=== PATIENT | female | born 1955 | race Two or more races ===

== ENCOUNTER 2021-09-13 13:32 | Outpatient (CLI) | payer MEDICARE, OTHER ==
[2021-09-20] MEDS ORDERED: ASPI-869 PO (12:21)
[2021-09-20] MEDS ORDERED: HYDR-3972 PO (12:21)
[2021-09-20] MEDS ORDERED: RIVA10TA PO (12:21)
== END 2021-09-13 23:59 | disposition home or self-care (01) ==
LOC: LAB 13:32
PROVIDERS: ATTEND Specialist
DX: Z01.812 Encounter for preprocedural laboratory examination (principal); Z20.822 Contact with and (suspected) exposure to COVID-19
CPT/HCPCS: C9803; U0003

== ENCOUNTER 2021-09-19 05:19 | Inpatient (IN) | payer MEDICARE, OTHER ==
[~2021-09-19] VITALS: Ht 152.4 cm; Wt 68.5 kg
[2021-09-19 05:45] VITALS: BP 139/73
[2021-09-19] MEDS ORDERED: CEFAZOLIN 2 GM in IV D5W 100 ML IV ONE (06:00)
[2021-09-19] MEDS ORDERED: POLYMYXIN B SULFATE 500,000 UNITS ONE (06:04)
[2021-09-19] MEDS ORDERED: BUPIVACAINE 0.5 % PF 150 MG/30 ML VIAL ONE ×2 (06:05→06:19)
--- NOTE | 2021-09-19 06:06 | NUR ---
DAY SURGERY 66 y/o Female arrived to unit for day surgery. Patient is A/O x4, ambulatory, independent. Patient consented procedure. Procedure checklist competed and signed. Patient transported to OR by bed. Will endorse to oncoming RN. To be admitted to unit post op.
[2021-09-19] MEDS ORDERED: FENTANYL PF 100MCG/2ML AMPUL ONE (06:18)
[2021-09-19] MEDS ORDERED: HYDROMORPHONE INJ 2 MG/ML DISP.SYRIN ONE (06:18)
[2021-09-19] MEDS ORDERED: ROCURONIUM BROMIDE 50 MG/5 ML ONE (06:18)
[2021-09-19] MEDS ORDERED: MIDAZOLAM HCL 2 MG/2ML VIAL ONE (06:18)
[2021-09-19] MEDS ORDERED: TRANEXAMIC ACID 3,000 MG in SODIUM CHLORIDE IRRIG SOLUTION 70 ML IR ONE (07:00)
--- NOTE | 2021-09-19 08:00 | NUR ---
DAY SURGERY PATIENT IS NOT IN THE UNIT AT THIS TIME. IN THE OR FOR SURGERY WITH DR. HICKS.
[2021-09-19] MEDS ORDERED: HYDROMORPHONE 1 MG/1 ML DISP.SYRIN ONE ×2 (08:40→08:54)
[2021-09-19] MEDS ORDERED: ACETAMINOPHEN 325 MG TABLET PO PRN (09:00)
[2021-09-19] MEDS ORDERED: BISACODYL SUPP (10 MG) 10 MG/SUPP.RECT SUPP.RECT RC PRN (09:00)
[2021-09-19] MEDS ORDERED: SENNOSIDES 8.6 MG TABLET PO PRN (09:00)
[2021-09-19] MEDS ORDERED: HYDROCODONE/APAP 5/325MG TABLET PO PRN ×2 (09:00→11:00)
[2021-09-19] MEDS ORDERED: DOCUSATE SODIUM 250 MG CAPSULE PO PRN (09:00)
[2021-09-19] MEDS ORDERED: ZOLPIDEM TARTRATE 5 MG TABLET PO PRN (09:00)
[2021-09-19] MEDS ORDERED: ONDANSETRON HCL/PF 4 MG/2 ML VIAL IVP PRN (09:00)
--- NOTE | 2021-09-19 09:48 | NUR ---
MS/RN RECEIVING NOTES RECEIVED A PATIENT VIA GURNEY, A TRANSFER FROM OR. S/P RIGHT TOTAL KNEE ARTHROPLASTY WITH DR. HICKS. PATIENT IS ALERT AND ORIENTED X4, ABLE TO MAKE NEEDS KNOWN. IN ROOM AIR WITH NO S/S OF DISTRESS NOTED. V/S TAKEN AND RECORDED FOLLOWS: BP- 119/59, P-73, RR-18, T-98.5, O2 SAT AT 99% ON ROOM AIR. IV ACCESS ON LEFT HAND #20G IS INTACT AND PATENT. MINIMAL PAIN REPORTED BUT TOLERABLE. SEEN BY DR. RENDON AT BEDSIDE. ORIENTED PATIENT ON THE UNIT. HEALTH TEACHINGS GIVEN AND ABLE TO VERBALIZED UNDERSTANDING. SAFETY PRECAUTIONS OBSERVED: BED LOCKED ON LOWEST POSITION, SIDE RAILS UP X2, CALL LIGHT WITHIN EASY REACH. WILL CONTINUE TO MONITOR PATIENT.
[2021-09-19] MEDS: IV D5/0.45 NACL 1,000 ML IV PRN ×2 (10:50→18:35)
[2021-09-19 11:00] VITALS: BP 108/54
[2021-09-19] MEDS ORDERED: oxyCODONE IR immediate release 5 MG PO PRN (11:00)
[2021-09-19] MEDS ORDERED: NALOXONE HCL 0.4 MG/ML AMPUL IV PRN (11:00)
[2021-09-19] MEDS ORDERED: MAG HYDROX/AL HYDROX/SIMETH 30 ML UDC PO PRN (11:00)
[2021-09-19] MEDS ORDERED: CLONIDINE HCL 0.1 MG TABLET PO PRN (11:00)
[2021-09-19] MEDS ORDERED: MAGNESIUM HYDROXIDE 30 ML UDC PO PRN (11:00)
[2021-09-19] MEDS ORDERED: diphenhydrAMINE HCL 25 MG CAPSULE PO PRN (11:00)
[2021-09-19] MEDS ORDERED: MENTHOL/CETYLPYRD (CEPACOL) 1 LOZ LOZENGE MM PRN (11:00)
[2021-09-19] MEDS ORDERED: HYDROMORPHONE 1 MG/1 ML DISP.SYRIN IV PRN (11:30)
[2021-09-19] MEDS: HYDROMORPHONE 1 MG/1 ML DISP.SYRIN IV PRN ×2 (11:34→17:53)
[2021-09-19] MEDS: ANCEF 1 GM/50 ML D5W IV SCH ×2 (14:30→23:10)
[2021-09-19] MEDS ORDERED: INFLUENZA VACCINE 2021-22 0.5 ML DISP.SYRIN IM ONE (15:00)
--- NOTE | 2021-09-19 15:47 | NUR ---
FLU VACCINE ADMINISTERED ADMINISTERED FLU VACCINE IM PER PATIENT REQUEST ON LEFT DELTOID AREA. WILL MONITOR.
[2021-09-19 16:00] VITALS: BP 112/67
[2021-09-19] MEDS: DOCUSATE SODIUM 100 MG CAPSULE PO SCH (17:46)
[2021-09-19] MEDS: RIVAROXABAN 10 MG TABLET PO SCH (17:47)
--- NOTE | 2021-09-19 18:54 | NUR ---
MS/RN CLOSING NOTES PATIENT IS IN BED WATCHING TV, ALERT AND ORIENTED X4, ABLE TO MAKE NEEDS KNOWN. STABLE ON ROOM AIR. NO DISTRESS NOTED AT THIS TIME. S/P RIGHT TOTAL KNEE ARTHROPLASTY WITH DR. HICKS. DRESSING INTACT. IV ACCESS ON LEFT HAND #20G IS INTACT WITH A RUNNING D5 1/2 NS @ 125ML/HR. ALL NEEDS MET. KEPT PATIENT COMFORTABLE ALL THROUGHOUT THE SHIFT. SAFETY MEASURES IN PLACED: BED LOCKED ON LOWEST POSITION, SIDE RAILS UPX2, CALL LIGHT WITHIN EASY REACH. WILL ENDORSE TO THE NEXT SHIFT FOR DILIP.
--- NOTE | 2021-09-19 19:30 | NUR ---
MS RN NOTES RECEIVED ON LAYING COMFORTABLY ON BED,A.O X4,SPEAK FILIPINO,BREATHING EASY,NO SOB,IVF INFUSING WELL ON LEFT HAND AT 125ML/HR RATE VIA IV PUMP.S/P RIGHT TOTAL KNEE ARTHROPLASTY,DRESSING INTACT AND DRY.CONTINENT,USE BEDPAN.PAIN TOLERABLE AT THE MOMENT,CALL LIGHT IN REACH,NEEDS ANTICIPATED.
[2021-09-19 20:00] VITALS: BP 101/58
[2021-09-19] MEDS: FAMOTIDINE (20 MG) 20 MG TABLET PO SCH (20:59)
[2021-09-19] MEDS: oxyCODONE IR immediate release 5 MG PO PRN (21:03)
--- NOTE | 2021-09-19 21:03 | NUR ---
MS RN NOTES PAIN MANAGEMENT C/O RIGHT KNEE PAIN 7/10 ON PAIN SCALE,OXY/IR 10MG PO GIVEN ORDERED FOR MODERATE PAIN
[2021-09-20] MEDS: IV D5/0.45 NACL 1,000 ML IV PRN (03:52)
[2021-09-20] MEDS: HYDROMORPHONE 1 MG/1 ML DISP.SYRIN IV PRN ×2 (03:59→14:25)
--- NOTE | 2021-09-20 03:59 | NUR ---
MS RN NOTES PAIN MANAGEMENT C/O PAIN 8/10 ON PAIN SCALE,MEDICATED WITH DILAUDID 0.5MG IV ORDERED.
--- NOTE | 2021-09-20 06:39 | NUR ---
MS RN NOTES FAIRLY RESTED AT NIGHT,IVF IN PROGRESS,PAIN MANAGEMENT EFFECTIVE,IN NO ACUTE DISTRESS.WILL ENDORSE TO DAY NURSE FOR DILIP
--- NOTE | 2021-09-20 07:37 | NUR ---
RN OPENING NOTES Patient seen comfortably lying in bed, no SOB, no apparent distress noted, breathing even and unlabored, denies any pain or discomfort at this time, no grimacing. Call light left within reach, safety precautions in place, brakes locked, side rails up X 2, will monitor closely for any changes.
[2021-09-20 08:00] VITALS: BP 98/51
[2021-09-20] MEDS: DOCUSATE SODIUM 100 MG CAPSULE PO SCH ×2 (08:07→16:32)
[2021-09-20] MEDS: FAMOTIDINE (20 MG) 20 MG TABLET PO SCH (08:07)
[2021-09-20] MEDS: oxyCODONE IR immediate release 5 MG PO PRN (08:59)
--- NOTE | 2021-09-20 11:09 | NUR ---
SS Consult: SS consult for discharge planning. Pt. Is a 66-year-old female. Pt. demonstrates adequate insight to the reason for hospitalization. Per pt., she was brought in by family for knee surgery. Pt. was oriented x4, alert, and cooperative. During interview, pt. was capable of following directions, made appropriate eye-contact, and appeared well-groomed. Pt.s speech was at a normal rate. Pt.s mood was elevated. SW explored pt.s Hx of mental health and substance abuse. Pt. reported no Hx of mental health, substance abuse, suicidal or homicidal. Pt. denies auditory hallucinations, visual hallucinations, paranoia, or delusions. SW explored pt.s living situation. Per pt., she lives with family [[address] [place] [address]]. Per pt., she reports having adequate support from family [daughter in law and son]. Pt. reported that she has a supportive family and feels safe at home. Pt. mentioned that she can care for herself. Pt. is independent with her ADLs and uses a walker. Plan: SW provided available senior resources and pt. accepted. Once discharge, per pt., she would like to return to home [[address] [place] [address]]. Resources Provided: ABUSE PREVENTION: ELDER ABUSE HOTLINE (27/04) ADULT PROTECTIVE SERVICES HOTLINE LONG-TERM CARE [facility] Region AREA ON AGING (HOTLINE) ADULT DAY HEALTH CARE CARE CENTERS: Private pay or Medi-shara funded adult day care [facility] , [facility] Services , [facility] , [facility] Adult Day Health Care , [facility] Adult [facility] Health Care , [facility] Adult Daycare Center , [facility] , [facility] , Vian ALZHEIMERS DISEASE/DEMENTIA: Alzheimers Association Helpline [facility] www.alz.org/[facility] Department of Aging www.lacity.org Family Caregiver Corinne www.caregiver.org [place] Caregiver Resources Center/Family Support www.[facility].org CANCER RESOURCES: [place] Cancer Society www.cancer.org Cancer Support Community www.CancerSupportVvsb.org: CancerCare www.cancercare.org [facility] Cancer Support [place] www.Underground Cellar.org [facility] HEALTH ASSOCIATIONS: AARP www.aarp.org ALS Association (ask for Leslee) www.als.org [place] Diabetes Association www.diabetes.org [place] Heart Association www.heart.org [place] Lung Association www.lungusa.org [place] Parkinson Disease Association www.apdaparkinson.org [place] , www.redcross.org Arthritis Foundation www.arthritis.org Crohns & Colitis Foundation of [place] www.ccfa.org/chapters/chacorta National Multiple Sclerosis Society www.nationalmssociety.org Myasthenia Gravis Foundation www.myasthenia-ca.org National Stroke Association www.stroke.org CONSERVATORSHIP & GUARDIANSHIP: AARP Ebony [place] Legal Services Center for Health Care Rights Eldercare Information and Referral Fuel Cell Builder [facility]: [facility] Bar Referral Service [facility] Neighborhood Legal Services Office of the Public Guardian [place] EYESIGHT DISORDER RESOURCES: [place] Macular Degeneration Foundation [facility] www.[facility].org GRIEF AND BEREAVEMENT RESOURCES: The [place] , [facility] THE HOPE Connection , [facility] Bereavement Center , [place] HEARING DISORDER RESOURCES: [place] Telephone Access Program Deaf and Disabled Telecommunications Program www.ddtp.[facility].ca.gov HearRx Hearing Centers ([place]) Better Hearing Systems , [place] GLAD ([facility] Agency on Deafness) V/ TTY; Locator Specialist , [facility] Hearing [facility] -low income hearing aid assistance www.[facility] semin[facility] hospitalfoundation.org [place] [facility] , Devika HELP AT HOME CAREGIVER SUPPORT: In Home Support Services (Must have [facility] to be eligible) *Ask for a list of agencies that provide services to assist with care in the home. Local Senior Centers also have listings of care providers. HOME SAFETY MODIFICATIONS AND EQUIPMENT: Senior centers have additional referrals. [place] Housing and Community Investment Dept. Handyworker Program (low income) or Visit http://hcidla.[facility].org/jzr-bafnwb-ad for more information National Seating and Mobility and/or ; Forever Active www.foreGigaFin Networks Stay Home Safe www.Stayhomesafe.com LIFE ALERT RESPONSE SYSTEM: [employer] Services 371-343-7426 www. Waffle Life Alert 562-723-3987 www.Statwing.[employer]ama [employer] Life Station 898-627-3738 www.Reddit.[employer] Safe Return 386-361-2218 www.HEALBE.or/safereturn Cell Phones for Seniors www.Edtrips MEALS AND FOOD PROGRAMS: [place] Meals on Wheels [phone] [place] Meals on Wheels [phone] [facility] [phone] [place] to the Homebound [phone] [place] to the Homebound [phone] [facility] to the Homebound [phone] [facility] to the Homebound [phone] [facility] [phone] [facility] [phone] ONE Generation [phone] [facility] [phone] [facility] [phone] Meals on Wheels [phone] For all ages: $6.85/ meal w side. Delivered M-F from 10 am-1pm. Application and payment is done over the phone. Frozen meals available for weekends. [place] [facility] Food [facility] [phone] [facility] Torch Shearer [phone] [facility] [phone] [facility] [place]- Brown bag lunches [phone] [facility] [phone] MEAL/GROCERY DELIVERY PROGRAMS: [facility] Gourmet Meals [phone]- [facility] [phone]- [facility] Magic Kitchen [phone] Moms Meals [phone] (ask Sharif for Discount Select grocery stores may provide delivery. MEDICAL INSURANCE SUPPORT SERVICES: Center for Health Care Rights [phone] Health Insurance Counseling/Advocacy Programs (HICAP)-Must have Medicare. Offers counseling for Medi-Shara eligibility [phone] Department of Public Torch Shearer 551-808-4576 www.[facility].ca.gov Medicare [phone] www.socialsecurity.org Social Security [phone] SENIOR ACTIVITY PROGRAMS: *Contact a local senior center, adult school, recreation facility or community college for education, fitness, recreation, and social programs. Aquatic Therapy and Adapted Exercise programs through [facility] [phone] Encore at [facility] [phone] www.[facility] gardens/encore H2U- Senior Friends [phone] [place] Senior Programs [phone] www.oasisnet.org Suddenly 65 www.sttwhysl04.Grama V[employer]yal [employer] Finance SENIOR CENTERS: [facility] [phone] [facility] [phone] [facility] [phone] [facility] Innovation Center [phone] [facility] [phone] [facility] [phone] [facility] [phone] [facility] [phone] One GenerationDorindaSt. [facility] [phone] [facility] [phone] [facility] [phone] [facility] [phone] [facility] [phone] TRANSPORTATION: Local [facility] may have applications for transportation programs and additional resources. ACCESS Services [phone] Transportation for seniors and disabled persons 7 days a week requiring 254 hr. advance reservation. Must apply and register for program nicola eligible. [employer] [phone] or [phone] Transportation for seniors and persons with ADA card/metro disabled card in the [facility]. M-F only. Must register for services. ONE GENERATION [phone] Serves 65 years + in conjunction with city ride program. Must be registered with both programs. A to B Transport [phone] Provides wheelchair/gurney van service. Adult Medical Transport [phone] Accepts [facility] with prior authorization. Care Van [phone] Provides wheelchair Transport. [facility] Wide Transportation [phone] Provides gurney service Gentle Care [phone] Gurney Transport. [facility] Town Transportation [phone] wheelchair & gurney transport D Transportation [phone] wheelchair & gurney transport [place] Non-Emergency Transport [phone] wheelchair & gurney transport [facility] Center [phone] Short Term Transportation primarily for adults with disabilities on social security income. Nominal fee may apply and a reservation is required. [facility] [phone] or [phone] [facility] [phone] [place] [address] Services -[phone] For additional programs & services VETERANS RESOURCES: Submissions for Aid and Attendance should be done directly to Federal VA office locatd at : [facility] [address] [facility]. [facility] [phone] National Caregiver Support Line [phone] [facility] Veterans Services Field Office [phone] [place] Department of [place] Affairs [phone] Pension Information [phone]
[2021-09-20] MEDS ORDERED: ASPI-869 PO (12:21)
[2021-09-20] MEDS ORDERED: RIVA10TA PO (12:21)
[2021-09-20] MEDS ORDERED: HYDR-3972 PO (12:21)
[2021-09-20 16:00] VITALS: BP 102/51
[2021-09-20] MEDS: RIVAROXABAN 10 MG TABLET PO SCH (16:32)
--- NOTE | 2021-09-20 16:40 | NUR ---
Patient to be discharged home today, no apparent distress noted, no shortness of breath, respirations even and unlabored, pain medication given per MD order as needed when non pharmacological measures ineffective. Patient made aware of the situation, she signed all discharge paper works, all belongings taken, inventory list signed by patient. Health teaching provided, verbalized understanding and gratitude. Reminded resident to pecan picker new prescriptions at [facility] pharmacy. Skin assessment done prior to discharge, skin intact, warm to touch, no pallor or cyanosis noted. Patient has right knee surgical site, dressings was changed today, no s/s of infection, no swelling, no drainage, patient preferred not to have photos of her right knee surgical site, explained risks and benefits and hospital protocol thrice, still refused, respected patients wishes. Peripheral IV line and name wristband will be removed prior to discharge, surgical mask will be provided for patient to use. Per patient her daughter should be here around 7pm tonight, call light left within reach, will monitor closely for any changes.
--- NOTE | 2021-09-20 18:24 | NUR ---
Peripheral IV line removed prior to discharge, complete and intact, no excessive bleeding noted, site covered with dry dressing. Name wristband removed prior to discharge, surgical mask provided for patient to use. OPERATIONS RESEARCH GROUP MANAGER assisted patient going to the hospital parking lot via wheelchair, left unit at 1824pm with Reny daughter, stable condition, exit care documents handed to patient. Patient and daughter verbalized gratitude.
[2021-10-03] MEDS ORDERED: ASPIRIN 325 MG TABLET PO SCH (09:00)
== END 2021-09-20 18:43 | disposition home health service (06) | DRG 470 ==
LOC: DS 05:19 → MED 05:21
PROVIDERS: ADMIT Internal Medicine; ATTEND Internal Medicine
PROC: 0SRC0J9 Replacement of Right Knee Joint with Synthetic Substitute, Cemented, Open Approach (ICD-10-PCS; principal; 2021-09-19)
DX: M17.11 Unilateral primary osteoarthritis, right knee (principal); Z20.822 Contact with and (suspected) exposure to COVID-19; G89.18 Other acute postprocedural pain; Z79.01 Long term (current) use of anticoagulants
CPT/HCPCS: 36415; 85027-TC; 88305-TC; 88311-TC; 97116-TC; 97530-TC; 97760-TC; A4217; C1713; C1776; G0378; J0330; J0690; J1100; J1170; J1885; J2250; J2405; J2704; J3010; J3490; J7030; J7050; J7060; L1830; Q2036